=== PATIENT | female | born 1980 | race Caucasian/White ===

== ENCOUNTER → 2016-03-19 | Outpatient (CLI) | payer BC ==
[~2016-03-19] MED LIST: ACYCLOVIR800 MG PO; BACTRIM DS 8001 TAB PO; BISOPROLOL 5MG T5 MG PO; CIPRO 500MG TA500 MG PO; FIORICET 325 MG1 TAB PO; FLEXERIL10 MG PO; HYDROXYCUT PO; IRON TABLETS325 MG PO; LORTAB 5/500 501 TAB PO; MACROBID 100MG100 MG PO; MEDROL 4MG. DOSE4 MG PO; MOTRIN 600MG.600 MG PO; MULTI VITAMINS1 TAB PO; NOMEDS; PREDNISONE 10MG10 MG PO; PREDNISONE 20MG20 MG PO; PRENATAL PLUS1 TA1 PO; PYRIDIUM 200MG200 MG PO; ULTRAM50 MG PO; ZITHROMAX 250M250 MG PO; ZITHROMAX Z-PA250 M1 PO; ZOFRAN4 MG PO; Zofran4 MG PO
[2016-03-21 09:38] LABS: F003-IgE Codfish <0.10 kU/L (Class 0); F024-IgE Shrimp <0.10 kU/L (Class 0); F040-IgE Tuna <0.10 kU/L (Class 0); F041-IgE Salmon <0.10 kU/L (Class 0); F147-IgE Flounder <0.10 kU/L (Class 0)
[2016-03-21 16:40] LABS: F369-IgE Catfish <0.10 kU/L (Class 0)
== END ==
LOC: LAB 11:26
PROVIDERS: Allergy & Immunology
DX: T78.1XXA Other adverse food reactions, not elsewhere classified, initial encounter (principal)

== ENCOUNTER → 2016-07-30 | Outpatient (CLI) | payer BC ==
--- NOTE | 2016-07-30 15:18 | RADIOLOGY REPORT PS360 ---
US TRANSVAGINAL PREG HISTORY: OB US FOR DATES ORDERING PHYSICIAN: Pete Coronel MD PATIENT AGE: 35 years COMPARISON: None FINDINGS: An intrauterine gestational sac is present with a pole with a crown-rump length of 0.37cm correlating to gestational age of 6 weeks 1 day. Yolk sac noted. heart tones are present with an FHR of 115 bpm's. 2 cm corpus luteum cyst noted on the left. Unremarkable right ovary. IMPRESSION: Live intrauterine gestation at 6 weeks 1 day
== END ==
LOC: RAD 10:28
DX: O26.841 Uterine size-date discrepancy, first trimester (principal)